=== PATIENT | female | born 1975 | race Asian ===

== ENCOUNTER → 2018-04-04 | Outpatient (CLI) | payer BC | END | disposition home or self-care (01) | LOC: CFH 09:04 | PROVIDERS: ATTEND Student in an Organized Health Care Education/Training Program | DX: M51.36 Other intervertebral disc degeneration, lumbar region (principal); M48.02 Spinal stenosis, cervical region; R20.2 Paresthesia of skin; M79.605 Pain in left leg | CPT/HCPCS: 72141; 72148 ==